=== PATIENT | male | born 1990 | race African-American/Black ===

== ENCOUNTER 2019-09-07 14:57 | Emergency (ER) | payer OTHER ==
[~2019-09-07] VITALS: Ht 172.7 cm; Wt 83.0 kg
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
[2019-09-07 15:45] LABS: ABSOLUTE NEUTROPHILS 2.9 thou/uL (1.4-8.2); BASOPHILS 0.4 % (0.0-2.0); EOSINOPHILS 2.3 % (0.0-3.0); HEMATOCRIT 45.2 % (42.0-52.0); HEMOGLOBIN 14.9 gm/dL (14.0-18.0); LYMPHOCYTES 33.6 % (24.0-44.0); MCH 27.1 pg (26.0-34.0); MCV 82.1 fL (80.0-100.0); MONOCYTES 7.8 % (1.0-8.0); PLATELET COUNT 154 thou/uL (150-400); POLYS 55.9 % (36.0-66.0); RBC 5.51 mil/uL (4.50-6.00); RDW 14.6 % (10.5-14.5); WBC 5.2 thou/uL (4.0-11.0)
[2019-09-07 15:49] LABS: ANION GAP 8 mmol/L (7-16); BUN 14 mg/dL (7-18); CHLORIDE 105 mmol/L (98-107); CO2 27 mmol/L (21-32); CREATININE 1.3 mg/dL (0.7-1.3); GLUCOSE 78 mg/dL (74-106); SODIUM 140 mmol/L (136-145)
[2019-09-07 15:58] LABS: TROPONIN-I <0.06 ng/mL (<0.06)
[2019-09-07] MEDS ORDERED: NORFLEX100 MG PO (17:18)
[2019-09-07] MEDS ORDERED: NAPROSYN500 MG PO (17:18)
[2019-09-07 18:00] VITALS: BP 104/68
--- NOTE | 2019-09-08 08:18 | EKG ---
[facility] [place] [address] ELECTROCARDIOGRAM REPORT Name: DANAY SHEFFIELD Room #: DEP [facility].#: [id number] Admission: 09/07/19 Attend Phys: Discharge: 09/07/19 Date of : [birth year] Report #: [id number] THIS REPORT FOR: cc: FAM - No family physician/PCP FAM - No family physician/PCP Carrillo Boothe MD ~ THIS REPORT FOR: //name// [facility] ED Test Date: 2019-09-07 Test Time: 17:16:20 Pat Name: DANAY SHEFFIELD Department: Room: Gender: [employer]: [employer] : 1990 Requested By: Rodrick Borges Order Number: [id number] MD: Carrillo Boothe Measurements Intervals [place] Rate: 56 P: 64 WA: 155 QRS: 79 QRSD: 100 T: 53 QT: 383 QTc: 370 Interpretive Statements Sinus rhythm Low voltage, extremity leads No previous ECG available for comparison Electronically Signed On 09-08-2019 8:18:08 CDT by Carrillo Boothe [email or web address] <ELECTRONICALLY SIGNED> By: Carrillo Boothe MD [birth year]/1918 15 15 MD SARAH Husain
== END 2019-09-07 17:50 | disposition home or self-care (01) ==
LOC: ER 14:57
PROVIDERS: Emergency Medicine
DX: S16.1XXA Strain of muscle, fascia and tendon at neck level, initial encounter (principal); F17.210 Nicotine dependence, cigarettes, uncomplicated; X50.1XXA Overexertion from prolonged static or awkward postures, initial encounter; Y93.89 Activity, other specified; Y92.89 Other specified places as the place of occurrence of the external cause; Y99.9 Unspecified external cause status